=== PATIENT | female | born 1990 | race African-American/Black ===

== ENCOUNTER 2021-07-27 07:15 | Emergency (ER) | payer OTHER ==
[2021-07-27 14:25] LABS: SARS-CoV-2 PCR by NAA Not Detected (NotDetected)
== END 2021-07-27 09:12 | disposition home or self-care (01) ==
LOC: CSHERS 07:15
DX: J06.9 Acute upper respiratory infection, unspecified (principal); Z20.822 Contact with and (suspected) exposure to COVID-19
CPT/HCPCS: 87804; 99284; U0003; U0005